=== PATIENT | male | born 2000 | race Caucasian/White ===

== ENCOUNTER 2022-12-22 15:17 | Inpatient (IN) | payer MEDICAID ==
[~2022-12-22] VITALS: Ht 188 cm; Wt 72.6 kg
[2022-12-22] MEDS ORDERED: OLAN5TAB94 PO (17:51)
[2022-12-22] MEDS ORDERED: DOXY-354 PO (17:51)
[2022-12-23 00:24] VITALS: BP 117/69; PULSE 83; RESP 18; TEMP 98.4; O2SAT 98
[2022-12-23] MEDS: LORazepam 2 MG TABLET PO PRN ×2 (00:53→17:37)
[2022-12-23] MEDS: ZOLPIDEM TARTRATE 10 MG TABLET PO PRN ×2 (00:53→20:17)
[2022-12-23 08:01] LABS: BASOPHILS % (AUTO) 0.7 % (0.0-2.0); EOSINOPHILS % (AUTO) 3.7 % (1.0-6.0); HEMATOCRIT 40.7 % (41-53); HEMOGLOBIN 13.5 g/dL (13.5-17.5); LYMPHOCYTES # (AUTO) 2.4 K/uL (1.0-4.8); LYMPHOCYTES % (AUTO) 25.8 % (22.0-44.0); MEAN CORPUSCULAR HEMOGLOBIN 28.7 pg (26.0-34.0); MEAN CORPUSCULAR HGB CONC 33.2 G/dL (31.0-37.0); MEAN CORPUSCULAR VOLUME 87 fL (80-100); MONOCYTES # (AUTO) 0.6 K/uL (0.1-1.0); MONOCYTES % (AUTO) 6.9 % (2.0-9.0); NEUTROPHILS # (AUTO) 5.9 K/uL (1.8-7.7); NEUTROPHILS % (AUTO) 62.9 % (40.0-70.0); PLATELET COUNT (AUTO) 367 K/uL (150-450); RED CELL DISTRIBUTION WIDTH 13.9 % (11.5-14.5); WHITE BLOOD COUNT (AUTO) 9.3 K/uL (4.5-11.0)
[2022-12-23 08:17] LABS: HEMOGLOBIN A1C 5.2 % (3.8-5.6)
[2022-12-23] MEDS: DOXYCYCLINE HYCLATE 100 MG TABLET PO SCH ×2 (08:28→17:37)
[2022-12-23 08:32] LABS: ALANINE AMINOTRANSFERASE 23 U/L (12-78); ALBUMIN 3.2 g/dL (3.4-5.0); ALKALINE PHOSPHATASE 74 U/L (46-116); ANION GAP 7 mmol/L (8-16); ASPARTATE AMINOTRANSFERASE 15 U/L (15-37); BILIRUBIN,TOTAL 0.1 mg/dL (0.1-1.0); CALCIUM, TOTAL 9.2 mg/dL (8.8-10.5); CARBON DIOXIDE 30 mmol/L (22-29); CHLORIDE 103 mmol/L (98-107); CHOL/HDL RATIO 5.3 (4.2-7.3); CHOLESTEROL 128 mg/dL (131-200); CREATININE 0.58 mg/dL (0.60-1.30); FREE T4 (FREE THYROXINE) 0.82 ng/dL (0.76-1.46); GLOMERULAR FILTR. RATE CALC > 60 mL/min (>60); GLUCOSE,RANDOM 92 mg/dL (70-110); HDL CHOLESTEROL 24 mg/dL (40-60); LDL CHOL (CALC.) 70 mg/dL (0-130); SODIUM SERUM 140 mmol/L (136-145); THYROID STIMULATING HORMONE 0.97 uIU/mL (0.36-3.74); TOTAL PROTEIN, SERUM 6.9 g/dL (6.4-8.2); TRIGLYCERIDES 171 mg/dL (15-150); UREA NITROGEN, BLOOD 25 mg/dL (7-18)
[2022-12-23 08:40] VITALS: BP 110/70; PULSE 85; RESP 17; TEMP 97.2; O2SAT 99
[2022-12-23] MEDS: OLANZapine 5 MG TABLET PO SCH ×2 (09:42→20:17)
[2022-12-23] MEDS ORDERED: GuaiFENesin/D-METHORPHAN [SUGAR-FREE] 200-20MG/10 ML SYRUP UDCUP PO PRN (16:15)
[2022-12-23] MEDS ORDERED: CloNIDine HCL 0.1 MG TABLET PO PRN (16:15)
[2022-12-23] MEDS ORDERED: PETROLATUM,WHITE 28 GM JELLY TP PRN (16:15)
[2022-12-23] MEDS ORDERED: ONDANSETRON HCL 4 MG TABLET PO PRN (16:15)
[2022-12-23] MEDS ORDERED: DOCUSATE SODIUM 100 MG CAPSULE PO PRN (16:15)
[2022-12-23] MEDS ORDERED: MAG HYDROX/AL HYDROX/SIMETH ES 30 ML SUSPENSION UDCUP PO PRN (16:15)
[2022-12-23] MEDS ORDERED: MAGNESIUM HYDROXIDE SUSPENSION 30 ML UDCUP PO PRN (16:15)
[2022-12-23] MEDS ORDERED: ALBUTEROL SULFATE HFA 90 MCG/PUFF 8 GM INHALER IH PRN (16:15)
[2022-12-23] MEDS ORDERED: LOPERAMIDE HCL 2 MG CAPSULE PO PRN (16:15)
[2022-12-23] MEDS ORDERED: ACETAMINOPHEN 325 MG TABLET PO PRN (16:15)
[2022-12-23] MEDS ORDERED: NICOTINE 14 MG/24 HOUR PATCH TD PRN (16:15)
[2022-12-23 19:24] VITALS: RESP 18
[2022-12-23] MEDS: IBUPROFEN 400 MG TABLET PO PRN (19:24)
[2022-12-23 20:14] VITALS: BP 108/77; PULSE 90; RESP 18; TEMP 97.7; O2SAT 98
[2022-12-23 20:24] VITALS: RESP 18
[2022-12-24] MEDS: HALOPERIDOL 5 MG TABLET PO PRN (04:56)
[2022-12-24] MEDS: LORazepam 2 MG TABLET PO PRN ×2 (04:56→20:43)
[2022-12-24] MEDS: DOXYCYCLINE HYCLATE 100 MG TABLET PO SCH ×2 (08:14→17:10)
[2022-12-24] MEDS: OLANZapine 5 MG TABLET PO SCH ×2 (08:14→20:43)
[2022-12-24 08:20] VITALS: BP 122/61; PULSE 67; RESP 17; TEMP 97.7; O2SAT 99
[2022-12-24 08:53] LABS: HEMOGLOBIN A1C 5.3 % (3.8-5.6)
[2022-12-24 09:08] LABS: THYROID STIMULATING HORMONE 1.48 uIU/mL (0.36-3.74)
[2022-12-24] MEDS: IBUPROFEN 400 MG TABLET PO PRN (12:47)
[2022-12-24 12:52] VITALS: RESP 18; O2SAT 98
[2022-12-24 20:24] VITALS: BP 107/61; PULSE 77; RESP 18; TEMP 97.6; O2SAT 97
[2022-12-24] MEDS: ZOLPIDEM TARTRATE 10 MG TABLET PO PRN (20:44)
[2022-12-25] MEDS: DOXYCYCLINE HYCLATE 100 MG TABLET PO SCH ×2 (08:25→16:26)
[2022-12-25] MEDS: OLANZapine 5 MG TABLET PO SCH ×2 (08:25→20:04)
[2022-12-25 08:31] VITALS: BP 114/80; PULSE 74; RESP 17; TEMP 98.1; O2SAT 99
[2022-12-25] MEDS: LORazepam 2 MG TABLET PO PRN ×2 (14:55→20:04)
[2022-12-25 20:42] VITALS: BP 113/57; PULSE 92; RESP 18; TEMP 97.5; O2SAT 98
[2022-12-25] MEDS: ZOLPIDEM TARTRATE 10 MG TABLET PO PRN (21:04)
[2022-12-26 08:13] VITALS: BP 117/73; PULSE 92; RESP 17; TEMP 98.4; O2SAT 99
[2022-12-26] MEDS: OLANZapine 5 MG TABLET PO SCH ×2 (08:13→20:07)
[2022-12-26] MEDS: DOXYCYCLINE HYCLATE 100 MG TABLET PO SCH ×2 (08:27→16:30)
[2022-12-26] MEDS: LORazepam 2 MG TABLET PO PRN ×2 (16:30→23:20)
[2022-12-26] MEDS: HALOPERIDOL 5 MG TABLET PO PRN ×2 (16:30→23:20)
[2022-12-26] MEDS: ZOLPIDEM TARTRATE 10 MG TABLET PO PRN (20:07)
[2022-12-26 20:21] VITALS: BP 130/73; PULSE 98; RESP 20; TEMP 97.6; O2SAT 97
[2022-12-26] MEDS: IBUPROFEN 400 MG TABLET PO PRN (23:20)
[2022-12-26 23:21] VITALS: RESP 18
[2022-12-27 00:20] VITALS: RESP 18
[2022-12-27 08:26] VITALS: RESP 17
[2022-12-27] MEDS: DOXYCYCLINE HYCLATE 100 MG TABLET PO SCH ×2 (08:27→16:55)
[2022-12-27] MEDS: OLANZapine 5 MG TABLET PO SCH ×2 (08:27→20:14)
[2022-12-27] MEDS: HALOPERIDOL 5 MG TABLET PO PRN (16:55)
[2022-12-27] MEDS: LORazepam 2 MG TABLET PO PRN (16:55)
[2022-12-27 19:39] VITALS: RESP 20
[2022-12-27] MEDS: IBUPROFEN 400 MG TABLET PO PRN (19:39)
[2022-12-27] MEDS: ZOLPIDEM TARTRATE 10 MG TABLET PO PRN (20:15)
[2022-12-27 20:23] VITALS: BP 140/82; PULSE 87; RESP 20; TEMP 98; O2SAT 97
[2022-12-27 20:39] VITALS: RESP 18
[2022-12-28] MEDS: DOXYCYCLINE HYCLATE 100 MG TABLET PO SCH ×2 (08:29→16:31)
[2022-12-28] MEDS: OLANZapine 5 MG TABLET PO SCH ×3 (08:29→21:10)
[2022-12-28 08:30] VITALS: BP 128/70; PULSE 87; RESP 18; TEMP 97.7; O2SAT 100
[2022-12-28] MEDS ORDERED: OLANZapine 2.5 MG TABLET PO ONE (09:15)
[2022-12-28] MEDS: LORazepam 2 MG TABLET PO PRN ×2 (16:31→21:10)
[2022-12-28] MEDS: IBUPROFEN 400 MG TABLET PO PRN (16:31)
[2022-12-28] MEDS: HALOPERIDOL 5 MG TABLET PO PRN (16:31)
[2022-12-28 16:32] VITALS: RESP 20
[2022-12-28 17:31] VITALS: RESP 18
[2022-12-28 20:18] VITALS: BP 111/63; PULSE 92; RESP 20; TEMP 97.7; O2SAT 98
[2022-12-28] MEDS: ZOLPIDEM TARTRATE 10 MG TABLET PO PRN (21:10)
[2022-12-29 08:52] VITALS: BP 138/74; PULSE 110; RESP 17; TEMP 98; O2SAT 93
[2022-12-29] MEDS: DOXYCYCLINE HYCLATE 100 MG TABLET PO SCH ×2 (09:11→16:10)
[2022-12-29] MEDS: OLANZapine 5 MG TABLET PO SCH ×2 (09:11→20:08)
[2022-12-29] MEDS ORDERED: LORazepam 2 MG/ML VIAL IM ONE (20:15)
[2022-12-29] MEDS ORDERED: HALOPERIDOL LACTATE 5 MG/ML VIAL IM ONE (20:15)
[2022-12-29] MEDS ORDERED: DiphenhydrAMINE HCL 50 MG/ML VIAL IM ONE (20:15)
[2022-12-29] MEDS ORDERED: DiphenhydrAMINE HCL 50 MG/ML VIAL ONE (20:17)
[2022-12-29] MEDS ORDERED: LORazepam 2 MG/ML VIAL ONE (20:17)
[2022-12-29] MEDS ORDERED: HALOPERIDOL LACTATE 5 MG/ML VIAL ONE (20:17)
[2022-12-29 21:40] VITALS: BP 128/72; PULSE 92; RESP 18; TEMP 97.1; O2SAT 96
[2022-12-30] MEDS: LORazepam 2 MG TABLET PO PRN ×3 (07:49→16:27)
[2022-12-30] MEDS: OLANZapine 5 MG TABLET PO SCH ×2 (08:00→20:21)
[2022-12-30 08:49] VITALS: BP 119/82; PULSE 88; RESP 17; TEMP 97.1; O2SAT 99
[2022-12-30 22:16] VITALS: RESP 20; TEMP 97.7
[2022-12-31] MEDS: LORazepam 2 MG TABLET PO PRN (08:12)
[2022-12-31] MEDS: OLANZapine 5 MG TABLET PO SCH (08:13)
[2022-12-31] MEDS: QUEtiapine FUMARATE 100 MG TABLET PO SCH ×2 (09:22→20:19)
[2022-12-31 09:38] VITALS: BP 114/65; PULSE 90; RESP 18; TEMP 97.8; O2SAT 98
[2022-12-31] MEDS: HALOPERIDOL 5 MG TABLET PO PRN (18:07)
[2022-12-31 20:26] VITALS: BP 117/72; PULSE 100; RESP 19; TEMP 97.7; O2SAT 100
[2023-01-01] MEDS: QUEtiapine FUMARATE 100 MG TABLET PO SCH ×2 (08:10→21:17)
[2023-01-01 08:46] VITALS: BP 107/60; PULSE 88; RESP 17; TEMP 98; O2SAT 98
[2023-01-01 20:42] VITALS: BP 122/72; PULSE 82; RESP 18; TEMP 97.9; O2SAT 99
[2023-01-02] MEDS: QUEtiapine FUMARATE 100 MG TABLET PO SCH ×2 (09:14→20:39)
[2023-01-02 20:57] VITALS: BP 124/90; PULSE 87; RESP 18; TEMP 96.9; O2SAT 98
[2023-01-03 08:29] VITALS: BP 124/68; PULSE 88; RESP 18; TEMP 98; O2SAT 100
[2023-01-03] MEDS: QUEtiapine FUMARATE 100 MG TABLET PO SCH (08:57)
[2023-01-03] MEDS ORDERED: QUET100T34 PO (11:40)
== END 2023-01-03 16:20 | disposition home or self-care (01) | DRG 750 ==
LOC: B3A 23:07
PROVIDERS: ADMIT Psychiatry & Neurology Psychiatry; ATTEND Psychiatry & Neurology Psychiatry
DX: F20.0 Paranoid schizophrenia (principal); R45.851 Suicidal ideations; N45.1 Epididymitis; F19.10 Other psychoactive substance abuse, uncomplicated; G47.00 Insomnia, unspecified; Z79.899 Other long term (current) drug therapy
CPT/HCPCS: 80053; 80061; 83036; 84439; 84443; 85025; 87081; J1200; J1630; J2060